=== PATIENT | female | born 1945 | race Caucasian/White ===

== ENCOUNTER → 2016-08-22 | Outpatient (CLI) | payer OTHER | LOC: BMCIMAGING 15:48 | PROVIDERS: ATTEND Internal Medicine Rheumatology | DX: M25.841 Other specified joint disorders, right hand (principal); M25.842 Other specified joint disorders, left hand ==

== ENCOUNTER → 2016-11-21 | Outpatient (CLI) | payer OTHER | LOC: BMCIMAGING 14:45 | PROVIDERS: ATTEND Internal Medicine Rheumatology | DX: M41.86 Other forms of scoliosis, lumbar region (principal); M51.36 Other intervertebral disc degeneration, lumbar region; M19.011 Primary osteoarthritis, right shoulder ==